=== PATIENT | female | born 1985 | race Caucasian/White ===

== ENCOUNTER 2017-08-16 02:43 | Observation (INO) ==
[2017-08-16] MEDS ORDERED: IOPAMIDOL 100 ML BOTTLE IV ONE (02:44)
[2017-08-16] MEDS ORDERED: PANTOPRAZOLE 40 MG VIAL IV ONE ×2 (03:47→22:45)
[2017-08-16] MEDS ORDERED: ONDANSETRON 4 MG/2 ML VIAL IV PRN ×2 (03:49→08:55)
[2017-08-16] MEDS: HYDROmorphone 2 MG/ML SYRINGE IV PRN ×4 (03:50→07:32)
--- NOTE | 2017-08-16 03:52 | Emergency Department Note ---
Abdominal Pain HPI - General Chief Complaint: Abdominal Pain Stated Complaint: Abdominal Pain Time Seen by Provider: 08/16/17 03:47 - History of Present Illness HPI Narrative: 31-year-old female comes to the emergency room with onset of severe upper abdominal pain and nausea and vomiting. Onset was 2 and half hours ago. I am seeing her and interviewing her at around 3:42 AM. She describes the feeling of being upsetstomach all day but then sudden increase in her pain around 1 AM. She's had3-4 episodes of emesis and 3-4 episodes of dry heaves. No exposure to other patients or persons who have gastrointestinal nausea or vomiting or diarrheal type of illness. Pain is described as crampy area and there is some burpiness associated. She has not been passing flatus. She has not recently taken ibuprofen. She has no history of pancreatitis or diverticulitis or peptic ulcer disease. She's had some sweatiness but only with the vomiting but has had hot and cold chills but no fevers noted. - Related Data Home Medications Medication Instructions Recorded Confirmed ranitidine 150 mg tablet 300 mg PO QHS 05/24/17 08/16/17 Previous Rx's Medication Instructions Recorded sertraline 100 mg tablet 100 mg PO QDAY #90 tab 05/24/17 Allergies Allergy/AdvReac Type Severity Reaction Status Date / Time lactose Allergy Unknown Gassy Verified 07/05/17 13:52 irritable stomach rust Allergy Unknown Swelling; Uncoded 07/05/17 13:52 itchy Review of Systems Constitutional: Reports: as per HPI Cardiovascular: Denies: chest pain, palpitations Gastrointestinal: Reports: diarrhea, constipation. Denies: melena, hematochezia Genitourinary: Denies: urgency, dysuria, frequency Integumentary: Denies: rash, lesions Neurological: Denies: weakness Psychiatric: Reports: anxiety (panic attacks with rapid breathing; "I don't like crowded places") Endocrine: Denies: fatigue Hematological/Lymphatic: Denies: easy bleeding, easy bruising Abdominal Pain PMH - Past Medical History Medical history: Reports: migraine. Denies: diabetes, hypertension, thyroid disease Denies: diverticulitis, pancreatitis, peptic ulcer disease Surgical history ED: Reports: cholecystectomy. Denies: , herniorrhaphy Psychiatric history: Reports: depression, panic disorder - Social History Smoking status: Former smoker Alcohol use: Reports: Occasionally Physical Exam - General General appearance: alert, in distress - Head Head exam: atraumatic, normocephalic - Eye Eye exam: Present: normal appearance - ENT ENT exam: normal oropharynx, mucous membranes moist - Respiratory Respiratory exam: Present: normal lung sounds bilaterally. Absent: respiratory distress, wheezes, stridor, accessory muscle use, prolonged expiratory phase - Cardiovascular Cardiovascular exam: Present: regular rate, normal rhythm. Absent: systolic murmur, diastolic murmur - Abdominal Exam Abdominal exam: Present: soft, rebound (mildly.). Absent: distention, guarding , rigidity, organomegaly Abdominal tenderness: Present: RUQ, RLQ, LUQ, LLQ, epigastrium, moderate, severe (hard to hold still her legs andsome visual movements due to pain with believable expressions of pain on her face as well.) - Extremities Exam Extremities exam: Absent: pedal edema, pretibial edema - Back Exam Back exam: Absent: CVA tenderness (R), CVA tenderness (L) - Neurological Exam Neurological exam: Present: alert, oriented X3 - Psychiatric Psychiatric exam: Present: agitated (due to discomforts; restless.). Absent: depressed, anxious - Skin Skin exam: Present: warm, dry Course Vital Signs Temperature 96.7 F L 08/16/17 02:43 Pulse Rate 117 H 08/16/17 02:43 Respiratory Rate 20 08/16/17 02:43 Blood Pressure 130/81 08/16/17 02:43 Pulse Oximetry (%) 98 08/16/17 02:43 Temperature 98.7 F 08/16/17 04:40 Pulse Rate 84 08/16/17 09:01 Respiratory Rate 20 08/16/17 07:31 Blood Pressure 113/69 08/16/17 09:01 Pulse Oximetry (%) 96 08/16/17 09:01 Abdominal Pain - [facility] Narrative Medical decision making narrative: Major abdominal pain without temperature in a young female who's had her gallbladder removed. Consider diverticulitis, peptic ulcer disease, small bowel obstruction, urinary calculus, etc. Will do labs and imaging. Labs include mildly elevated WBC and mildly elevated CRP, but otherwise quite unremarkable. CT demonstrates no significant abnormality. Because of this puzzlement, I reviewed CT scans myself and would like to review with radiology. Metoclopramide ordered to be tried. Patient reexamined. does not appear to be a surgical abdomen but still seems to have quite a bit of discomfort. Will try to contact [facility], Dr. Carpenter. - Lab Data Result diagrams: 08/16/17 03:58 08/16/17 03:58 Lab Results 08/16/17 08/16/17 08/16/17 Range/Units 03:58 03:58 03:58 WBC 16.1 H (4.5-11.0) K/mcL RBC 4.72 (4.00-5.20) M/mcL Hgb 14.1 (12.0-15.0) g/dL Hct 41.2 (36.0-48.0) % MCV 87.3 (80.0-100.0) fL MCH 29.9 (26.0-34.0) pg MCHC 34.3 (31.0-36.0) g/dL RDW 13.0 (11.5-14.5) % Plt Count 313 (140-440) K/mcL MPV 9.1 (7.4-10.4) fL Gran % 83.9 H (38.0-78.0) % Lymph % (Auto) 11.6 L (15.5-49.0) % [place] % (Auto) 3.7 (1.0-12.0) % Eos % (Auto) 0.5 (0.0-7.0) % Baso % (Auto) 0.3 (0.0-2.0) % Gran # 13.5 H (1.8-8.0) K/mcL Lymph # (Auto) 1.9 (1.5-4.8) K/mcL [place] # (Auto) 0.6 (0.1-0.9) K/mcL Eos # (Auto) 0.1 (0.0-0.7) K/mcL Baso # (Auto) 0.1 (0.0-0.3) K/mcL VBG Lactic Acid (0.5-2.2) mmol/L Sodium 139 (133-145) mmol/L Potassium 3.9 (3.3-5.1) mmol/L Chloride 101 (96-108) mmol/L Carbon Dioxide 22 (22-30) mmol/L Anion Gap 16.0 (8-16) BUN 14 (6-20) mg/dl Creatinine 0.7 (0.6-1.1) mg/dl GFR Calculation 116 Glucose 116 H (70-105) mg/dL Calcium 9.6 (8.6-10.4) mg/dl Total Bilirubin 0.2 (0.0-1.0) mg/dL AST 13 (0-37) U/l ALT 15 (0-40) U/l Alkaline Phosphatase 80 (39-117) U/L C-Reactive Protein 1.4 H (0.0-0.8) mg/dl Total Protein 7.5 (5.9-8.4) gm/dL Albumin 4.3 (3.2-5.2) gm/dL Globulin 3.2 (2.2-3.7) gm/dL Albumin/Globulin Ratio 1.3 (1.0-2.3) Lipase 16 (7-60) U/L 08/16/17 Range/Units 04:25 WBC (4.5-11.0) K/mcL RBC (4.00-5.20) M/mcL Hgb (12.0-15.0) g/dL Hct (36.0-48.0) % MCV (80.0-100.0) fL MCH (26.0-34.0) pg MCHC (31.0-36.0) g/dL RDW (11.5-14.5) % Plt Count (140-440) K/mcL MPV (7.4-10.4) fL Gran % (38.0-78.0) % Lymph % (Auto) (15.5-49.0) % [place] % (Auto) (1.0-12.0) % Eos % (Auto) (0.0-7.0) % Baso % (Auto) (0.0-2.0) % Gran # (1.8-8.0) K/mcL Lymph # (Auto) (1.5-4.8) K/mcL [place] # (Auto) (0.1-0.9) K/mcL Eos # (Auto) (0.0-0.7) K/mcL Baso # (Auto) (0.0-0.3) K/mcL VBG Lactic Acid 1.3 (0.5-2.2) mmol/L Sodium (133-145) mmol/L Potassium (3.3-5.1) mmol/L Chloride (96-108) mmol/L Carbon Dioxide (22-30) mmol/L Anion Gap (8-16) BUN (6-20) mg/dl Creatinine (0.6-1.1) mg/dl GFR Calculation Glucose (70-105) mg/dL Calcium (8.6-10.4) mg/dl Total Bilirubin (0.0-1.0) mg/dL AST (0-37) U/l ALT (0-40) U/l Alkaline Phosphatase (39-117) U/L C-Reactive Protein (0.0-0.8) mg/dl Total Protein (5.9-8.4) gm/dL Albumin (3.2-5.2) gm/dL Globulin (2.2-3.7) gm/dL Albumin/Globulin Ratio (1.0-2.3) Lipase (7-60) U/L Disposition Pt seen by [employer]OD [employer] ASSOCIATE/PA only: No Clinical Impression: Abdominal pain, Nausea and vomiting Summary: Patient remained in the emergency room multiple hours with trying different medications to see if there could be better control of her nausea and vomiting but it kept coming back. Her labs were fairly unremarkable except for a white count of 16.1. Liver enzymes were normal. Renal function was normal. CT scan was unremarkable. I reviewed the CT scan with Dr. Smith. Case was discussed with the nurse practitioner for Dr. Jimenez with agreement that consultation was in order and possible upper scope. Patient is being admitted for observation during this period of time for to help control symptoms and to prepare her for possible upper scope hopefully this afternoon or sooner. Disposition: Xfer As Outpt/Obs ([facility]) Condition: Fair Referrals: Isac Craft PA-C [Primary Care Provider] -
[2017-08-16] MEDS: 0.9 % SODIUM CHLORIDE 1,000 ML IV SCH ×2 (04:25→13:19)
[2017-08-16 04:40] LABS: Basophils # (Auto) 0.1 K/mcL (0.0-0.3); Basophils % (Auto) 0.3 % (0.0-2.0); Eosinophils # (Auto) 0.1 K/mcL (0.0-0.7); Eosinophils % (Auto) 0.5 % (0.0-7.0); Granulocytes % (Auto) 83.9 % (38.0-78.0); Lymphocytes # (Auto) 1.9 K/mcL (1.5-4.8); Lymphocytes % (Auto) 11.6 % (15.5-49.0); Mean Cell Volume 87.3 fL (80.0-100.0); Mean Corpuscular HGB Conc 34.3 g/dL (31.0-36.0); Mean Corpuscular Hemoglobin 29.9 pg (26.0-34.0); Monocytes # (Auto) 0.6 K/mcL (0.1-0.9); Monocytes % (Auto) 3.7 % (1.0-12.0); Platelet Count 313 K/mcL (140-440); RBC 4.72 M/mcL (4.00-5.20)
[2017-08-16 04:52] LABS: ALT/SGPT 15 U/l (0-40); Albumin 4.3 gm/dL (3.2-5.2); Albumin/Globulin Ratio 1.3 (1.0-2.3); Alkaline Phosphatase 80 U/L (39-117); Blood Urea Nitrogen 14 mg/dl (6-20); Lipase 16 U/L (7-60)
[2017-08-16] MEDS ORDERED: PHENobarb/HYOSCY/ATROPINE/SCOP 1 DOSE BOTTLE PO ONE (07:00)
[2017-08-16] MEDS ORDERED: METOCLOPRAMIDE 10 MG/2 ML VIAL IV ONE ×2 (07:19→08:58)
--- NOTE | 2017-08-16 08:50 | Cat Scan Report ---
CLINICAL INFORMATION: Upper abdominal pain and vomiting COMPARISON: None. TECHNIQUE: Following enteric contrast, 80 cc of Isovue-300 were injected intravenously, and 60 seconds later, 2.5 mm helical slices were obtained from the mid heart through the subtrochanteric regions. Following reconstruction, 2.5 mm sagittal, coronal and axial reformatted images were processed and reviewed at bone, lung and soft tissue windows. Five minutes later, 5 mm helical slices were obtained from the mid heart through the kidneys and viewed at soft tissue windows. FINDINGS: Lung bases show no abnormality - no effusion. The visualized heart is normal. Images through the abdomen show the gallbladder is surgically absent. Intrahepatic and common bile ducts are normal caliber - CBD is six mm. The liver, both kidneys, adrenal glands, spleen, pancreas, and aorta, including aortic branches, are normal in size, configuration and attenuation without focal lesion No free air, free fluid and no adenopathy. The stomach, small and large bowel, including the appendix, are all unremarkable. Images should the pelvis show a 2.6 cm simple cyst in the left ovary. Uterus is anteflexed and normal in size: 8 x 4.6 cm. The cervix mucosa is mildly thickened (10 mm) with moderate thickening heterogeneity of the cervix muscularis. 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 This consists of a thin capsule which encompasses fat and 7-8 well-circumscribed nodules ranging up to 16 mm. IMPRESSION: 1. No acute disease evident. 2. Mild thickening of the cervical mucosa and the muscularis. This could indicate cervical inflammation or, less likely, neoplasia. Please correlate with physical exam findings including Pap smear and consider correlative pelvic ultrasound 3. 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 This may be evident as a soft tissue mass on physical examination and likely has been present for many years if the patient performed monthly self exams. Interpreted and Authenticated by: Ric Smith 08/16/17
[2017-08-16] MEDS ORDERED: HYDROmorphone 2 MG/ML SYRINGE IV PRN (09:07)
[2017-08-16 09:16] LABS: Appearance,Urine HAZY; Bilirubin,Urine NEG (NEG); Color,Urine YELLOW; Glucose,Urine (UA) NEGATIVE (NEG); Leukocyte Esterase,Urine NEG /uL (NEG); Nitrate,Urine NEG (NEG); Protein,Urine NEG (NEG); Specific Gravity,Urine 1.007 (1.003-1.030); Urine Blood NEG mg/dL (<0.03); Urobilinogen,Urine NEG (NEG)
--- NOTE | 2017-08-16 10:22 | Internal Med History&Physical ---
Medical - H&P: HPI Patient information: Note initiated : 08/16/17 at 10:19 am Patient: Belinda Menjivar 31 y/o F admitted on for Abdominal Pain. History of present illness: Ms. Menjivar is a 31 year old female with a long-standing history of GI complaints. She reports she just was not feeling very well most of the day yesterday. Last night she awakened with the onset of fairly severe epigastric pain, nausea and vomiting. She presented to the emergency room for evaluation. They gave her IV fluids, IV pain meds, antiemetics, but could not seem to get her symptoms to settle down. She is therefore admitted now to observation, so that GI can also evaluate and do an upper endoscopy. She reports that she has had intermittent nausea and also gets "the shakes" intermittently, although she does not she has fever or overt chills. She also has chronic headaches. She used to use Excedrin Migraine quite often for those, but says it did not seem to be helping. She says she now uses that only about 3 times per month. She does not really take much of anything for her headaches at the current time. She does endorse chronic diarrhea for many years. She says she had an upper endoscopy 2 years ago that was fine. She believes she is lactose intolerant. She does not believe she is ever been screened for gluten intolerance. She also has a long-standing history of depression and anxiety. In the emergency room today her mother was noting that her O2 saturations were dropping while she was asleep, but this was thought to be an effect of the IV Dilaudid. She is obese. Otherwise, she denies recent fever or chills, blurry vision or new eye or ear symptoms, sore throat or cough. She denies shortness of breath, chest pain, palpitations. She has occasional vomiting as well as diarrhea. She denies blood in any body fluids. She denies dysuria. Medical History Heartburn (Chronic) Anemia (Chronic) Migraine (Chronic) Depression (Chronic) 2001 Gallbladder problem (Resolved) Surgical History History of cholecystectomy (Chronic) 2014 Medication List ranitidine (Acid Veneer Redrier (ranitidine)) 300 mg PO QHS RN sertraline 100 mg PO QDAY Excedrin Migraine, [id number], uses rarely Allergies/Adverse Reactions lactose Allergy (Unknown, Verified 07/05/17 13:52) Gassy irritable stomach rust Allergy (Unknown, Uncoded 07/05/17 13:52) Swelling; itchy Family History Mother Arthritis Migraine Grandmother Cancer Maternal Lung cancer Grandfather CVA (cerebral vascular accident) Social History The patient is and lives with her . [place] rarely. She does not use drugs. She only smoked a few times as a teenager. other: Children-1 Medical - H&P: Meds Home Medications Medication Instructions Recorded Confirmed Type ranitidine 150 mg tablet 300 mg PO QHS 05/24/17 08/16/17 History sertraline 100 mg tablet 100 mg PO QDAY #90 tab 05/24/17 08/16/17 Rx Allergies Allergy/AdvReac Type Severity Reaction Status Date / Time lactose AdvReac Mild Gassy Verified 08/16/17 11:14 irritable stomach rust Allergy Unknown Swelling; Uncoded 07/05/17 13:52 itchy Medical - H&P: Exam - Constitutional Vitals: Temp Pulse Resp BP Pulse Ox 98.7 F 84 20 104/69 99 08/16/17 04:40 08/16/17 10:18 08/16/17 07:31 08/16/17 10:01 08/16/17 10:18 Heart rate varies from 77 -117 On exam, she is a very sleepy, overweight white female, who appears uncomfortable at times, with grimacing. Head: Normocephalic, atraumatic. Ears: TMs and canals are clear. Eyes: PERRLA, EOMI, anicteric. Pharynx: Mucosa is very dry. Teeth are in good repair. Neck: Is supple, without lymphadenopathy, JVD, thyromegaly, bruits. Cardiac exam: Shows regular rate and rhythm with normal S1 and S2, without murmurs, rubs, gallops. Lungs: Are clear to auscultation, without rales, rhonchi, wheezes. Abdomen: Is obese. Abdomen is nondistended, but diffusely tender to even mild palpation. Tenderness is definitely worse in the epigastric area. There is some guarding but no obvious rebound. Bowel sounds are active. Extremities: Show no cyanosis, clubbing, edema. Neurologic exam: Patient is sleepy from pain meds, but otherwise exam is grossly nonfocal. Medical - H&P: Reslt - Labs CBC & Chem 7: 08/17/17 04:34 08/17/17 04:34 Labs: Short CBC 08/16/17 Range/Units 03:58 WBC 16.1 H (4.5-11.0) K/mcL Hgb 14.1 (12.0-15.0) g/dL Hct 41.2 (36.0-48.0) % Plt Count 313 (140-440) K/mcL BMP 08/16/17 03:58 Sodium 139 Potassium 3.9 Chloride 101 Carbon Dioxide 22 BUN 14 Creatinine 0.7 Glucose 116 H Calcium 9.6 Liver Function 08/16/17 Range/Units 03:58 Total Bilirubin 0.2 (0.0-1.0) mg/dL AST 13 (0-37) U/l ALT 15 (0-40) U/l Alkaline Phosphatase 80 (39-117) U/L Albumin 4.3 (3.2-5.2) gm/dL Urine 08/16/17 Range/Units 08:15 Urine Color Yellow Urine Appearance Hazy Urine pH 7.0 (5.0-9.0) Ur Specific [place] 1.007 (1.003-1.030) Urine Protein Neg (NEG) mg/dL Urine Glucose (UA) Negative (NEG) mg/dL August 16: CBC White blood cell count 16,000, hemoglobin 14, platelets 313,000, differential: Shows 13,500 granulocytes. Otherwise normal. Lactic acid is normal at 1.3 CT of the abdomen and pelvis: Mild thickening of the cervical mucosa, consistent with inflammation or possible neoplasia. Consider pelvic ultrasound. 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 Medical - H&P: A/P - Narrative A/P Narrative: #1. GI. Presents with abdominal pain, nausea and vomiting. They could not get the symptoms fully under control in the emergency room. Duration, to get her symptoms under control. The patient does have a history of cholecystectomy, so it is unclear if she could perhaps have a postcholecystectomy syndrome, or could have passed a gallstone through her common bile duct. She may also have more common things, such as gastritis, peptic ulcer disease, H. pylori, viral gastroenteritis. -IV fluids. -GI consult. N.p.o., in case upper endoscopy is performed. -IV antiemetics and pain medications as needed. -Proton pump inhibitor. 2. Psychiatric. History of depression. Patient is on sertraline. There is a possibility this could contribute to nausea. 3. History of obesity. 4. CODE STATUS: Full code. Her would act as her POA. 5. DVT prophylaxis: Early ambulation. 6. Hematologic. History of anemia. This visit took approximately 55 minutes today, to review her records with the ER MD, review test results, interview and examine her, review plan of care with the patient and her mother, as well as with GI, and write orders. Addendum: Patient is now status post EGD. Dr. Jimenez tells me is fine to advance diet as tolerated. If she can tolerate an oral diet and her symptoms settle down, she could possibly discharge later today.
[2017-08-16] MEDS ORDERED: MAGNESIUM HYDROXIDE 30 ML ORAL.SUSP PO PRN (10:44)
[2017-08-16] MEDS ORDERED: NALOXONE HCL 0.4 MG/ML VIAL IV PRN (10:44)
[2017-08-16] MEDS ORDERED: ACETAMINOPHEN 325 MG TABLET PO PRN (10:44)
[2017-08-16] MEDS ORDERED: POTASSIUM CHLORIDE 20 MEQ in DEXTROSE 5%-1/2NS 1,000 ML IV SCH (10:44)
--- NOTE | 2017-08-16 10:47 | Internal Medicine Consult Note ---
Medical - CN: HPI - Data of Consult Patient: new to practice Consult date: 08/16/17 Requesting Physician: Dr. Yeager Primary Care Provider: Isac Craft - Consult Narrative Reason for consult: Epigastric pain, nausea and vomiting History of present illness: Ms. Menjivar is a 31 year old poorly controlled migraineur with chronic abdominal pain, nausea and vomiting, and diarrhea who underwent laprascopic cholecystectomy 2 1/2 years ago for biliary dyskinesia who presented to the ER after suffering acute onset epigastric pain around 1 AM this morning. Her mother , Agustina, an RN, helps provide some history at the bedside. She has intermittent episodes of epigastric/chest pain "like a pole through her chest", but this largely abated after cholecystectomy. CT of the abdomen and pelvis today show she is status post cholecystectomy with a CBD 6mm and normal alk phos, transaminases, lipase and bilirubin. She feels unwell from a GI perspective much of the time, having nausea and vomiting with abdominal pain most days and diarrhea about 70% of the time. She passes loose stool up to 12 times daily with some nocturnal stooling and a few episodes of fecal incontinence. She tries to limit her eating in an effort to control her symptoms and has lost a small amount of weight. She tried fiber without improvement. She tried gluten restriction with a modest improvement. She suffers from migraine about 5 times weekly and uses copious amounts of Excedrin to control her pain; she has not previously been on a prophylactic medication as she is trying to get her depression under control and recently started sertraline. She sees melena occasionally, having last seen melena one month ago. LMP was 3 weeks ago and she does not believe she is ; I have not yet seen an HCG but she tells me one was done earlier today. She otherwise denies any extraintestinal manifestations of IBD, but is concerned as her great aunt and cousin both have Crohn's disease. CC: Medical - CN: PMH Medical history: Migraine, depression, anxiety. Chronic nausea, vomiting and abdominal pain. Surgical history: Laprascopic cholecystectomy 2016. EGD 2016. Pertinent family history: Mother has abdominal bloating and myalgias responsive to a gluten free diet. Great aunt and cousin with Crohn's disease. Social history: , former smoker. Drinks ETOH 1-2 times a week. Smoking status: Former smoker Alcohol use: rarely Medical - CN: Meds Home Medications Medication Instructions Recorded Confirmed Type ranitidine 150 mg tablet 300 mg PO QHS 05/24/17 08/16/17 History sertraline 100 mg tablet 100 mg PO QDAY #90 tab 05/24/17 08/16/17 Rx Allergies Allergy/AdvReac Type Severity Reaction Status Date / Time lactose Allergy Unknown Gassy Verified 07/05/17 13:52 irritable stomach rust Allergy Unknown Swelling; Uncoded 07/05/17 13:52 itchy Medical - CN: Exam - Constitutional Vitals: Temp Pulse Resp BP Pulse Ox 98.7 F 84 20 104/69 99 08/16/17 04:40 08/16/17 10:18 08/16/17 07:31 08/16/17 10:01 08/16/17 10:18 General appearance: cooperative, obese - Head Head exam: Present: atraumatic, normal inspection - ENT ENT exam: Present: mucous membranes moist - Neck Neck exam: Present: normal inspection. Absent: lymphadenopathy - Respiratory Respiratory exam: Present: normal respiratory exam, CTAB - Cardiovascular Cardiovascular exam: Present: normal rate and rhythm. Absent: systolic murmur - GI/Abdominal GI/Abdominal exam: Present: normal bowel sounds, soft, tenderness Medical - CN: Result - Labs CBC & Chem 7: 08/16/17 03:58 08/16/17 03:58 Labs: Short CBC 08/16/17 Range/Units 03:58 WBC 16.1 H (4.5-11.0) K/mcL Hgb 14.1 (12.0-15.0) g/dL Hct 41.2 (36.0-48.0) % Plt Count 313 (140-440) K/mcL BMP 08/16/17 03:58 Sodium 139 Potassium 3.9 Chloride 101 Carbon Dioxide 22 BUN 14 Creatinine 0.7 Glucose 116 H Calcium 9.6 Liver Function 08/16/17 Range/Units 03:58 Total Bilirubin 0.2 (0.0-1.0) mg/dL AST 13 (0-37) U/l ALT 15 (0-40) U/l Alkaline Phosphatase 80 (39-117) U/L Albumin 4.3 (3.2-5.2) gm/dL Urine 08/16/17 Range/Units 08:15 Urine Color Yellow Urine Appearance Hazy Urine pH 7.0 (5.0-9.0) Ur Specific [place] 1.007 (1.003-1.030) Urine Protein Neg (NEG) mg/dL Urine Glucose (UA) Negative (NEG) mg/dL Medical - CN: A/P (1) Abdominal pain Status: Acute (2) Nausea and vomiting Status: Acute - Narrative A/P Narrative: I discussed her case with Dr. Carpenter. By history, her symptoms suggest postcholecystectomy syndrome Type III. ERCP is not indicated due to lack of biliary dilatation and lack of pancreatic/liver enzyme elevation. We will proceed with EGD and small bowel biopsy to further evaluate her symptoms, checking for Excedrin induced ulcer, celiac disease (increased prevalence in migraineurs), and upper GI Crohn's. If this is unrevealing, colonoscopy with random colon biopsies will be scheduled. Aggressive migraine control will likely improve her chronic symptoms; the addition of a tricyclic such as nortriptyline 10 mg nightly would be a reasonable starting point. We will also check a celiac serology.
[2017-08-16] MEDS ORDERED: KETAMINE 10 MG/ML ML IV PRN (11:10)
[2017-08-16] MEDS ORDERED: PROPOFOL 200 MG/20 ML VIAL IV SCH (11:15)
[2017-08-16] MEDS ORDERED: MIDAZOLAM 2 MG/2 ML VIAL IV SCH (11:15)
[2017-08-16] MEDS ORDERED: PROPOFOL 20 ML IV ONE (11:25)
[2017-08-16] MEDS ORDERED: MIDAZOLAM 2 MG/2 ML VIAL ONE (11:25)
[2017-08-16] MEDS: ONDANSETRON 4 MG/2 ML VIAL IV PRN ×3 (11:43→23:54)
[2017-08-16] MEDS: DEXTROSE 5%-1/2NS W/20MEQ KCL 1,000 ML IV SCH ×2 (12:55→21:50)
[2017-08-16] MEDS: 0.9 % SODIUM CHLORIDE 10 ML SYRINGE IV SCH ×2 (13:21→22:49)
[2017-08-16] MEDS ORDERED: CALCIUM CARBONATE 500 MG TAB.CHEW CHEWED PRN (21:50)
[2017-08-16] MEDS: PANTOPRAZOLE 40 MG VIAL IV SCH (23:27)
[2017-08-17] MEDS: 0.9 % SODIUM CHLORIDE 10 ML SYRINGE IV SCH ×2 (05:27→14:48)
[2017-08-17] MEDS: DEXTROSE 5%-1/2NS W/20MEQ KCL 1,000 ML IV SCH ×2 (05:27→14:47)
[2017-08-17 06:32] LABS: Basophils # (Auto) 0 K/mcL (0.0-0.3); Basophils % (Auto) 0.2 % (0.0-2.0); Eosinophils # (Auto) 0.1 K/mcL (0.0-0.7); Eosinophils % (Auto) 1.9 % (0.0-7.0); Granulocytes % (Auto) 67.3 % (38.0-78.0); Lymphocytes # (Auto) 1.4 K/mcL (1.5-4.8); Lymphocytes % (Auto) 22.9 % (15.5-49.0); Mean Corpuscular HGB Conc 34.3 g/dL (31.0-36.0); Mean Corpuscular Hemoglobin 29.8 pg (26.0-34.0); Monocytes # (Auto) 0.5 K/mcL (0.1-0.9); Monocytes % (Auto) 7.7 % (1.0-12.0); Platelet Count 219 K/mcL (140-440); Red Cell Distribution Width 13.2 % (11.5-14.5)
[2017-08-17 06:54] LABS: ALT/SGPT 57 U/l (0-40); Albumin 3.7 gm/dL (3.2-5.2); Albumin/Globulin Ratio 1.5 (1.0-2.3); Alkaline Phosphatase 88 U/L (39-117); Bilirubin,Direct < 0.2 mg/dL (0.0-0.3); Blood Urea Nitrogen 6 mg/dl (6-20); Gamma Glutamyl Transpeptidase 95 U/L (5-36); Magnesium 2.1 mg/dL (1.6-2.5); Uric Acid 3.6 mg/dL (2.5-8.0)
[2017-08-17] MEDS: PANTOPRAZOLE 40 MG VIAL IV SCH (07:09)
[2017-08-17] MEDS: ONDANSETRON 4 MG/2 ML VIAL IV PRN (08:02)
[2017-08-17] MEDS ORDERED: SERTRALINE 100 MG TABLET PO SCH (09:00)
[2017-08-17] MEDS ORDERED: BUTALB/ACETAMINOPHEN/CAFFEINE 1 TABLET PO ONE (09:25)
--- NOTE | 2017-08-17 12:57 | Discharge Summary ---
Medical - DS: Prov Patient information: Note initiated : 08/17/17 at 12:53 pm Patient: Belinda Menjivar 31 y/o F admitted on 08/16/17 for Abdominal Pain/ Nausea and Vomiting. Date of admission: 08/16/17 10:50 Discharge date: 08/17/17 Primary care physician: Isac Craft Admitting clinician: Maylin Alvarez Consults: 08/16/17 08:49 Consult to Physician [CONS] Stat Comment: Consulting Provider: Keenan Carpenter Reason For Exam: Physician to Consult Consult to Physician [CONS] Stat Comment: Consulting Provider: Maylin Alvarez Reason For Exam: Physician to Consult Attending physician on discharge: Maylin Alvarez Medical - DS: Meds - Discharge Medications Prescriptions: Butalb/Acetaminophen/Caffeine [Fioricet] 1 tab PO Q6HP PRN #20 tab PRN Reason: Headache Ondansetron HCl [Zofran ODT] 4 mg SL Q4-6HP PRN #30 tab PRN Reason: Nausea And Vomiting Pantoprazole Sodium [Protonix] 20 mg PO QDAY #30 tablet. Active and Home Medications: Discharge medications: Protonix 40 mg p.o. daily Tums 500 mg every 6 hours as needed nausea Zofran 4 mg ODT every 4 hours as needed nausea Fioricet 1 tab every 6 hours as needed migraine, use sparingly Tylenol 650 mg every 6 hours as needed pain Okay to continue nighttime ranitidine if needed Sertraline 100 mg daily Previous home Medications: ranitidine 150 mg tablet 300 mg PO QHS 05/24/17 [History Confirmed 08/16/17 Last Taken Unknown] sertraline 100 mg tablet 100 mg PO QDAY #90 tab 05/24/17 [Rx Confirmed 08/16/17 Last Taken Unknown] Medical - DS: Hosp Hospital course: Mr. Menjivar is a 31 year old F August 16, 2017: History of present illness: Ms. Menjivar is a 31 year old female with a long-standing history of GI complaints. She reports she just was not feeling very well most of the day yesterday. Last night she awakened with the onset of fairly severe epigastric pain, nausea and vomiting. She presented to the emergency room for evaluation. They gave her IV fluids, IV pain meds, antiemetics, but could not seem to get her symptoms to settle down. She is therefore admitted now to observation, so that GI can also evaluate and do an upper endoscopy. She reports that she has had intermittent nausea and also gets "the shakes" intermittently, although she does not she has fever or overt chills. She also has chronic headaches. She used to use Excedrin Migraine quite often for those, but says it did not seem to be helping. She says she now uses that only about 3 times per month. She does not really take much of anything for her headaches at the current time. She does endorse chronic diarrhea for many years. She says she had an upper endoscopy 2 years ago that was fine. She believes she is lactose intolerant. She does not believe she is ever been screened for gluten intolerance. She also has a long-standing history of depression and anxiety. In the emergency room today her mother was noting that her O2 saturations were dropping while she was asleep, but this was thought to be an effect of the IV Dilaudid. She is obese. Otherwise, she denies recent fever or chills, blurry vision or new eye or ear symptoms, sore throat or cough. She denies shortness of breath, chest pain, palpitations. She has occasional vomiting as well as diarrhea. She denies blood in any body fluids. She denies dysuria. August 17, 2017: Hospital course: The patient was admitted and placed on IV fluids, IV morphine, IV Zofran 4 her symptoms. She had an upper endoscopy, which did not show abnormalities. She continued to complain of intermittent nausea, vomiting of small amounts, abdominal discomfort, persistent migraine headaches. She reports she has all of these chronically to varying degrees. She says she has not seen a neurologist or other headache doctor in the past. She had an EGD 2 years ago, but says she does not routinely follow up with GI. She believes she has been diagnosed with lactose intolerance, but had not been screened for gluten intolerance. She had continued nausea and generalized discomfort last night, so chose not to go home. This morning, she did become nauseated and spit up a little bit after trying to drink a cup of coffee. She was directed towards blander foods. She continued to complain of a migraine headache, which did not respond to IV morphine or Zofran or Tylenol. She was then given a dose of Fioricet, which she said helped somewhat. She was noted to have mild hypoxia with sleeping in the ER, after receiving IV pain medication. Is not clear if she might have nighttime hypoxia at home. The patient has known history of depression and anxiety. Sertraline was recently increased. Otherwise, she denies fever chills, chest pain or palpitations, shortness of breath, diarrhea or constipation or dysuria. On exam, she frowns and grimaces quite a bit. She seems somewhat anxious and emotional. Vital signs are all normal. Neck is supple without obvious JVD or lymphadenopathy. Cardiac exam shows regular rate and rhythm. Lungs are clear to auscultation. Abdomen is soft, without guarding or rebound. There is very mild vague tenderness noted primarily in the epigastric area. Bowel sounds are active. Extremities show no edema. Neurologic exam is grossly nonfocal. Assessment and plan: #1. GI. Presents with abdominal pain, nausea and vomiting. They could not get the symptoms fully under control in the emergency room. She was admitted to observation to get her symptoms under control. The patient does have a history of cholecystectomy, so it is unclear if she could perhaps have a postcholecystectomy syndrome, or could have passed a gallstone through her common bile duct. -Upper endoscopy was normal, by verbal report. I do not see a dictated report in the chart yet. Patient was started on IV and then oral Protonix. Continue Tums as needed. Continue Zofran as needed. Patient is strongly encouraged to follow-up with GI to continue the workup for her symptoms. Celiac panel is pending. (From GI: Pre-op diagnosis general: Abdominal pain, nausea and vomiting. Post-Op Diagnosis general: Cyclic vomiting syndrome. Nonulcer dyspepsia. Procedure Narrative: The procedure, alternatives and risks were discussed with the patient and the patient's questions were answered. No abnormality seen. There is no esophagitis nor hiatal hernia. The gastric mucosa, antrum, pyloric ring and duodenum were otherwise normal. Antral biopsy was taken for XOCHILT test. Small bowel biopsies obtained to check for malabsorption. The scope was withdrawn. Assessment: Cyclic vomiting syndrome. Nonulcer dyspepsia.) 2. Psychiatric. History of depression. Patient is on sertraline. There is a possibility this could contribute to nausea. 3. History of obesity. 4. CODE STATUS: Full code. Her would act as her POA. 5. DVT prophylaxis: Early ambulation. 6. Hematologic. History of anemia. #7. Chronic migraines. Patient should be referred to a headache specialist. Her headaches are a bit atypical, and that they are mainly frontal, and she describes them as feeling like the inside of her skull has been scraped raw. She reports some improvement in symptoms after receiving Fioricet today, but that would not be a good long-term fix. NSAIDs are not a good choice, given her GI issues. Patient says she no longer uses Excedrin frequently. She reports she uses it 2 or 3 times a month. she may benefit from a prophylactic medication. CT of her head and sinuses might be an option, to rule out sinus and other issues. #8. CYLINDER DEVAL[facility]. CT scan also showed that her cervix looks mildly abnormal. These make sure you are up-to-date on your Pap smear, as there may be inflammation of the cervix going on. Approximately 40 minutes was spent today, reviewing test results, interviewing and examining the patient, reviewing plan of care with staff, and writing orders. Discharge diagnosis: Abdominal pain, nausea and vomiting. Chronic headaches. Depression. - Time Spent with Patient Total time spent providing and/or coordinating discharge services: Greater than 30 minutes Medical - DS: Exam - Constitutional Vitals: Vital Signs Temp Pulse Resp BP BP Pulse Ox 08/17/17 11:26 97.4 F 18 102/60 98 08/17/17 07:34 97 08/17/17 06:33 97.8 F 18 99/66 98 08/17/17 03:44 98.0 F 81 12 95/58 95 08/16/17 23:16 97.4 F 85 12 92/57 94 08/16/17 20:28 94 08/16/17 20:00 97.9 F 76 12 100/66 96 08/16/17 16:55 75 100/61 98 08/16/17 14:57 68 99/63 93 08/16/17 14:41 86 104/68 95 08/16/17 14:11 73 95/55 98 08/16/17 13:41 73 96/60 98 Intake and Output 08/16/17 08/17/17 08/17/17 21:59 05:59 13:59 Intake Total 1000 / 1000 1302 / 1302 Output Total 50 / 50 Balance 1000 / 1000 1252 / 1252 Intake: IV 1000 / 1000 952 / 952 Dextrose 5%-1/2Ns W/20Meq KCl 1 1000 / 1000 952 / 952 ,000 ml @ 125 mls/hr IV .Q8H [facility] Rx#:[id number] Oral 350 / 350 Output: Emesis 50 / 50 Other: # Voids 1 1 # Bowel Movements 1 Weight 229 lb 8 oz Medical - DS: Data Labs on day of discharge: Labs from last 24 hours 08/17/17 08/17/17 08/16/17 04:34 04:34 19:45 WBC 6.2 RBC 3.90 L Hgb 11.6 L Hct 33.9 L MCV 87.0 MCH 29.8 MCHC 34.3 RDW 13.2 Plt Count 219 MPV 9.0 Gran % 67.3 Lymph % (Auto) 22.9 [place] % (Auto) 7.7 Eos % (Auto) 1.9 Baso % (Auto) 0.2 Gran # 4.2 Lymph # (Auto) 1.4 L [place] # (Auto) 0.5 Eos # (Auto) 0.1 Baso # (Auto) 0 Sodium 141 Potassium 3.8 Chloride 106 Carbon Dioxide 25 Anion Gap 10.0 BUN 6 Creatinine 0.6 GFR Calculation 122 Glucose 98 Uric Acid 3.6 Calcium 8.5 L Phosphorus 2.4 L Magnesium 2.1 Total Bilirubin 0.4 Direct Bilirubin < 0.2 GGT 95 H AST 56 H ALT 57 H Alkaline Phosphatase 88 Lactate Dehydrogenase 190 Total Protein 6.1 Albumin 3.7 Globulin 2.4 Albumin/Globulin Ratio 1.5 Triglycerides 107 IgA Total Pending Endomysial IgA Ab Titer Pending Endomysial IgA Ab Pending Tiss Transglutamin IgG Pending Tiss Transglutamin IgA Pending Gliadin (Deamidat) IgG Pending Preliminary micro results at discharge 08/16/17 08:16 Urine Culture - Preliminary Urine - Clean Void Mid-Stream August 16: CBC White blood cell count 16,000, hemoglobin 14, platelets 313,000, differential: Shows 13,500 granulocytes. Otherwise normal. Lactic acid is normal at 1.3 CT of the abdomen and pelvis: Mild thickening of the cervical mucosa, consistent with inflammation or possible neoplasia. Consider pelvic ultrasound. 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 Next Urinalysis showed 5 ketones, and does was otherwise normal. Celiac panel is still pending. Medical - DS: A/P - Patient/Caregiver Discharge Instructions Activity: increase activity as tolerated Diet: Lactose Free Additional Instructions: 1. GI. Please follow-up with the assembler installer general, to continue workup of your GI symptoms. Next Start Protonix 20 mg once a day for your stomach. Continue Tums and Zofran as needed. 2. Chronic headaches. Please have your primary care physician refer you to neurology, or other headache specialist. A small number of Fioricet were prescribed to help manage her pain. He can also use Tylenol for pain. He should avoid frequent use of Excedrin. He should also avoid other anti-inflammatories, as they may upset your stomach. #3. CAT scan also showed that your cervix looks inflamed. Please review this with your primary care physician or coin purse assembler. Discharge medications: Protonix 40 mg p.o. daily Tums 500 mg every 6 hours as needed nausea Zofran 4 mg ODT every 4 hours as needed nausea Fioricet 1 tab every 6 hours as needed migraine, use sparingly Tylenol 650 mg every 6 hours as needed pain Okay to continue nighttime ranitidine if needed Sertraline 100 mg daily Previous home Medications: ranitidine 150 mg tablet 300 mg PO QHS 05/24/17 [History Confirmed 08/16/17 Last Taken Unknown] sertraline 100 mg tablet 100 mg PO QDAY #90 tab 05/24/17 [Rx Confirmed 08/16/17 Last Taken Unknown] Prescriptions: Butalb/Acetaminophen/Caffeine [Fioricet] 1 tab PO Q6HP PRN #20 tab PRN Reason: Headache Ondansetron HCl [Zofran ODT] 4 mg SL Q4-6HP PRN #30 tab PRN Reason: Nausea And Vomiting Pantoprazole Sodium [Protonix] 20 mg PO QDAY #30 tablet. - Follow up Plan Follow up with: Isac Craft PA-C [Primary Care Provider] - Disposition: Home, Self-Care Prognosis: Good Rehab Potential: Good Overall status at discharge: patient is progressing back to baseline Medical - DS: Qual - VTE Deep Vein Thrombosis/Pulmonary Embolism Present on Admission: No
--- NOTE | 2017-08-17 13:12 | EGD Procedure Note ---
EGD Procedure Notes - Procedure Information Patient information: Note initiated : 08/17/17 at 1:11 pm Service Date: 08/16/17 Patient: Belinda Menjivar 31 y/o F admitted on 08/16/17 for Abdominal Pain/ Nausea and Vomiting. Pre-op diagnosis general: Abdominal pain, nausea and vomiting. Post-Op Diagnosis general: Cyclic vomiting syndrome. Nonulcer dyspepsia. Procedure Narrative: The procedure, alternatives and risks were discussed with the patient and the patient's questions were answered. With intravenous sedation, the Olympus video endoscope was introduced into the esophagus. The esophagus, stomach, and duodenum were examined sequentially. No abnormality seen. There is no esophagitis nor hiatal hernia. The gastric mucosa, antrum, pyloric ring and duodenum were otherwise normal. Antral biopsy was taken for XOCHILT test. Small bowel biopsies obtained to check for malabsorption. The scope was withdrawn. Assessment: Cyclic vomiting syndrome. Nonulcer dyspepsia.
[2017-08-17] MEDS ORDERED: FLU VACC QS2017-18 36MOS UP/PF 60 MCG/0.5 ML SYRINGE IM ONE (14:42)
--- NOTE | 2017-08-17 16:47 | Surgical Pathology Report ---
HISTOLOGY SPECIMEN MICROSCOPIC DIAGNOSIS SMALL BOWEL, DUODENUM, BIOPSY: -- INTESTINAL MUCOSA WITH INTACT VILLOUS ARCHITECTURE AND NO SPECIFIC DIAGNOSTIC CHANGE. -- AB/PAS STAIN NEGATIVE FOR GASTRIC SURFACE METAPLASIA (ADEQUATE TECHNICAL CONTROL). -- NO SIGNIFICANT EPITHELIAL LYMPHOCYTOSIS IDENTIFIED. (ACP:sln) CLINICAL HISTORY Abdominal pain; nausea/vomiting. PROCEDURAL IMPRESSION (?) Celiac; non-ulcer dyspepsia. GROSS DESCRIPTION Received in formalin labeled duodenum biopsy, are six pink-stone tissue fragments 0.3 to 0.5 cm. Totally submitted - one cassette. (STM:sln) Electronically Signed by: Edu Zacarias M.D.
[2017-08-17] MEDS ORDERED: PANTOPRAZOLE 40 MG VIAL IV SCH (17:30)
[2017-08-23 07:01] LABS: Gliadin Ab (IGA) 6 U (<20); TTG IGA AB < 1 U/mL; TTG IGG AB < 1 U/mL
== END 2017-08-17 15:15 | disposition home or self-care (01) ==
LOC: ED 02:43 → MEDSUR 02:43
PROVIDERS: ADMIT Internal Medicine; ATTEND Internal Medicine